=== PATIENT | male | born 1965 | race Caucasian/White ===

== ENCOUNTER 2019-08-22 07:51 | Emergency (ER) | payer BC, OTHER ==
[~2019-08-22] VITALS: Ht 175.2 cm; Wt 93.4 kg
[2019-08-22] MEDS ORDERED: GBPN600T (08:11)
[2019-08-22] MEDS ORDERED: CYCL10TA9 (08:11)
[2019-08-22] MEDS ORDERED: MELO15TA39 (08:11)
--- NOTE | 2019-08-22 08:41 | ED Abdominal Pain ---
General Chief Complaint: Allergic Reaction Stated Complaint: FACIAL SWELLING Nursing Triage Note: AMB TO ROOM REPORTS ONSET OF FACIL SWELLING. SAT AM WAS SEEN AT URGENT CARE YESTERDAY WAS GIVEN IM BENADRYL AND TOLD TO TAKE BENADRYL ZANTAC, AMD ZYTREC NOT ANY BETTER. Sepsis Screen: No Definite Risk Source of Information: Patient Exam Limitations: No Limitations History of Present Illness Date Seen by Provider: Aug 22, 2019 Time Seen by Provider: 08:10 Initial Comments Here with swelling of his face that started on Thursday and worsened. Seen yesterday at urgent care clinic and given Benadryl IM. Told to continue that as well as Zantac and Zyrtec. Not on any steroids currently. Did have a steroid shot last week for ear problems and was worried about that and this may be the reason why he did not get a shot yesterday. Denies breathing or swallowing problems. Does have swelling to the lip and around the eyes. Denies abdominal pain or vomiting. Onset after moving [place] on Thursday. Also with hunting on Thursday night and did get some skin irritation on his left wrist from that. Timing/Duration: 2-3 Days Severity/Quality: Moderate Location: Other (facial swelling) Associated Symptoms: No Fever/Chills, No Nausea/Vomiting, No Shortness of Air, No Weakness Allergies and Home Medications Allergies Coded Allergies: erythromycin base (Verified Allergy, Unknown, 08/22/19) ethyl alcohol (Verified Allergy, Unknown, 08/22/19) Home Medications Prednisone 10 Mg Tab, 10 MG PO UD 40 mg q day x 3, then 30 mg q day x 3, then 20 mg q day x 3, then 10 mg q day x 3 Prescribed by: JEANNA AYALA on 08/22/19 0842 Patient Home Medication List Home Medication List Reviewed: Yes Review of Systems Review of Systems Constitutional: see HPI; No chills, No fever Respiratory: No Symptoms Reported Cardiovascular: No Symptoms Reported Skin: see HPI, change in color, rash Psychiatric/Neurological: No Symptoms Reported Past Frxnmok-Bcjtxj-Nuaifw Hx Past Med/Social Hx: Reviewed Nursing Past Med/Soc Hx Patient Social History Alcohol Use: Denies Use Recreational Drug Use: No Smoking Status: Never a Smoker Recent Foreign Travel: No Contact w/Someone Who Travel: No Recent Infectious Disease Expo: No Past Medical History Surgeries: Yes (STENT) Orthopedic Respiratory: No Cardiac: Yes High Cholesterol Neurological: No Genitourinary: No Gastrointestinal: No Musculoskeletal: Yes (CHRONIC NECK. ) HEENT: No Cancer: No Psychosocial: No Family Medical History Reviewed Nursing Family Hx Physical Exam Vital Signs Vital Signs - First Documented 08/22/19 07:53 Temp 36.2 Pulse 56 Resp 18 B/P (MAP) 168/97 (120) Pulse Ox 98 O2 Delivery Room Air Capillary Refill : Less Than 3 Seconds Height/Weight/BMI Height: '" Weight: lbs. oz. kg; 30.00 BMI Method: General Appearance: WD/WN, no apparent distress HEENT: PERRL/EOMI, pharynx normal Neck: full range of motion, supple Respiratory: lungs clear, normal breath sounds Cardiovascular: regular rate, rhythm, no murmur Gastrointestinal: non tender, soft Neurologic/Psychiatric: alert, oriented x 3 Skin: warm/dry, rash, other (redness and swelling around the face overall from forehead to neck. Swelling noted around the eyes bilaterally. Does not seem to involve the eyes.) Progress/Results/Core Measures Results/Orders Vital Signs/I&O 08/22/19 07:53 Temp 36.2 Pulse 56 Resp 18 B/P (MAP) 168/97 (120) Pulse Ox 98 O2 Delivery Room Air Blood Pressure Mean: 120 Progress Progress Note : Progress Note Seen and evaluated. Patient does need to be initiated on steroid taper especially given symptoms are on the face near the eyes. We will do this outpatient and patient will go directly to the pharmacy and start prescription today. He will continue [id number] Zyrtec and Zantac as needed as well as Benadryl. Discharged home with return precautions. Patient verbalize unde rstanding instructions and agreement with plan. Departure Impression Primary Impression: Allergic contact dermatitis Qualified Codes: L23.9 - Allergic contact dermatitis, unspecified cause Disposition: HOME, SELF-CARE Condition: Stable Departure-Patient Inst. Decision time for Depature: 08:37 Referrals: UNKNOWN (PCP) Primary Care Physician Patient Instructions: Contact Dermatitis (DC) Add. Discharge Instructions: All discharge instructions reviewed with patient and/or family. Voiced understanding. Take medications as directed. You may continue Zyrtec and Zantac daily for the next few days and then as needed. Follow-up with your later this week for re check and further evaluation is needed. Return for worsening swelling, breathing problems, swallowing problems, nausea, vomiting, abdominal pain or other concerns as needed. Scripts Prednisone (Prednisone) 10 Mg Tab 10 MG PO UD, #30 TAB 40 mg q day x 3, then 30 mg q day x 3, then 20 mg q day x 3, then 10 mg q day x 3 Prov: JEANNA AYALA MD 08/22/19 JEANNA AYALA MD Aug 22, 2019 08:41
[2019-08-22] MEDS ORDERED: PRD10T PO (08:42)
[2019-08-22 08:53] VITALS: BP 168/97
== END 2019-08-22 08:52 | disposition home or self-care (01) ==
LOC: ER 07:52
DX: L23.9 Allergic contact dermatitis, unspecified cause (principal); E78.00 Pure hypercholesterolemia, unspecified; Z88.5 Allergy status to narcotic agent; Z88.8 Allergy status to other drugs, medicaments and biological substances; Z95.5 Presence of coronary angioplasty implant and graft
CPT/HCPCS: 99282

== ENCOUNTER → 2021-10-21 | Outpatient (CLI) | payer BC ==
[~2021-10-21] MED LIST: CYCL10TA9; GBPN600T; MELO15TA39; PRD10T PO
[2021-10-21 11:27] LABS: HEMATOCRIT 36 % (40-54); HEMOGLOBIN 11.6 g/dL (13.3-17.7); MEAN CORPUSCULAR HEMOGLOBIN 30 pg (25-34); MEAN CORPUSCULAR HGB CONC 33 g/dL (32-36); MEAN CORPUSCULAR VOLUME 91 fL (80-99)
[2021-10-21 11:28] LABS: BASOPHILS # (AUTO) 0.1 10^3/uL (0.0-0.1); BASOPHILS % (AUTO) 1 % (0-10); EOSINOPHILS # (AUTO) 0.5 10^3/uL (0.0-0.3); EOSINOPHILS % (AUTO) 5 % (0-10); LYMPHOCYTES # (AUTO) 1.5 X 10^3 (1.0-4.0); LYMPHOCYTES % (AUTO) 15 % (12-44); MONOCYTES # (AUTO) 0.7 X 10^3 (0.0-1.0); MONOCYTES % (AUTO) 7 % (0-12); NEUTROPHILS % (AUTO) 70 % (42-75); PLATELET COUNT 505 10^3/uL (130-400)
[2021-10-21 11:29] LABS: ALBUMIN 4.3 GM/DL (3.2-4.5); CALCIUM 9.6 MG/DL (8.5-10.1); CREATININE SERUM 0.95 MG/DL (0.60-1.30); POTASSIUM 4.7 MMOL/L (3.6-5.0)
[2021-10-21 14:51] LABS: PHOSPHORUS 3.5 MG/DL (2.3-4.7)
== END ==
LOC: IHC 09:53
PROVIDERS: ATTEND Pediatrics
DX: I25.10 Atherosclerotic heart disease of native coronary artery without angina pectoris (principal); Z48.812 Encounter for surgical aftercare following surgery on the circulatory system
CPT/HCPCS: 80069; 85025

== ENCOUNTER → 2022-11-21 | Outpatient (CLI) | payer BC ==
[~2022-11-21] MED LIST changes: +CYCL10TA25; -CYCL10TA9
--- NOTE | 2022-11-21 12:09 | Diagnostic Imaging Report ---
Indication: Right knee injury and pain. Time of Exam: 11:32 AM 3 views of the right knee were obtained. There is significant tricompartmental degenerative change with joint space narrowing and marginal spurring. No fracture or dislocation is identified. There is a small knee joint effusion. Impression: Degenerative changes and small knee joint effusion. No acute bony abnormality is detected. Dictated by: Dictated on workstation # [id number]
== END ==
LOC: RAD FS 11:18
PROVIDERS: ATTEND Nurse Practitioner
DX: M17.11 Unilateral primary osteoarthritis, right knee (principal)
CPT/HCPCS: 73562